=== PATIENT | male | born 1945 | race Caucasian/White ===

== ENCOUNTER → 2021-01-03 | Outpatient (CLI) | payer MEDICARE | LOC: LAB 09:08 | DX: Z01.812 Encounter for preprocedural laboratory examination (principal); Z20.822 Contact with and (suspected) exposure to COVID-19 ==

== ENCOUNTER → 2021-01-09 | Day surgery (SDC) | payer MEDICARE | END | disposition home or self-care (01) | LOC: MSO 08:04 | DX: H26.8 Other specified cataract (principal); I10 Essential (primary) hypertension; J44.9 Chronic obstructive pulmonary disease, unspecified; Z88.7 Allergy status to serum and vaccine; E66.9 Obesity, unspecified; F17.210 Nicotine dependence, cigarettes, uncomplicated; Z79.82 Long term (current) use of aspirin; Z79.899 Other long term (current) drug therapy | CPT/HCPCS: 00142; J0171; J2250; V2632 ==

== ENCOUNTER → 2021-02-06 | Day surgery (SDC) | payer MEDICARE | LOC: MSO 07:43 | DX: H26.8 Other specified cataract (principal); Z79.82 Long term (current) use of aspirin; J45.909 Unspecified asthma, uncomplicated; F17.210 Nicotine dependence, cigarettes, uncomplicated | CPT/HCPCS: 00142; J0171; J2250; V2632 ==